=== PATIENT | male | born 1985 | race Caucasian/White ===

== ENCOUNTER 2019-06-26 10:16 | Emergency (ER) | payer OTHER ==
[~2019-06-26] VITALS: Ht 180.3 cm; Wt 77.1 kg
[~2019-06-26 10:16] MED LIST: ADDERALL PO; ADDERALL XR 3030 MG; DOXYCYCLINE 10100 MG PO; NORCO 5-325 TA1 EACH PO; SILVADENE20 GM TP
[2019-06-26 11:10] VITALS: BP 110/71
== END 2019-06-26 11:12 | disposition home or self-care (01) ==
LOC: ER 10:16
DX: M25.561 Pain in right knee (principal); F90.9 Attention-deficit hyperactivity disorder, unspecified type

== ENCOUNTER 2020-11-11 21:38 | Emergency (ER) | payer OTHER ==
[~2020-11-11] VITALS: Ht 175.3 cm; Wt 74.8 kg
[2020-11-11 22:29] LABS: CALCIUM 8.8 mg/dL (8.5-10.1); CREATININE 1.2 mg/dL (0.7-1.3); POTASSIUM 4.1 mmol/L (3.5-5.1)
[2020-11-11] MEDS ORDERED: ZOFRAN ODT4 MG PO (23:17)
[2020-11-12 00:22] VITALS: BP 111/63
== END 2020-11-12 02:30 | disposition home or self-care (01) ==
LOC: ER 21:38
PROVIDERS: Emergency Medicine
DX: K52.9 Noninfective gastroenteritis and colitis, unspecified (principal); Z79.899 Other long term (current) drug therapy

== ENCOUNTER 2021-05-14 22:22 | Emergency (ER) | payer OTHER ==
[~2021-05-14] VITALS: Ht 180.3 cm; Wt 74.8 kg
[~2021-05-14 22:22] MED LIST changes: +ZOFRAN ODT4 MG PO
[2021-05-14 23:48] VITALS: BP 116/80
== END 2021-05-14 23:49 | disposition home or self-care (01) ==
LOC: ER 22:22
DX: S93.602A Unspecified sprain of left foot, initial encounter (principal); F90.9 Attention-deficit hyperactivity disorder, unspecified type; Z79.899 Other long term (current) drug therapy; X58.XXXA Exposure to other specified factors, initial encounter; Y93.89 Activity, other specified; Y92.89 Other specified places as the place of occurrence of the external cause; Y99.8 Other external cause status